=== PATIENT | male | born 1965 | race Caucasian/White ===

== ENCOUNTER 2018-11-15 21:08 | Inpatient (IN) | payer MEDICARE, MEDICAID ==
[~2018-11-15] VITALS: Ht 172.7 cm; Wt 68.9 kg
--- NOTE | 2018-11-15 23:15 | NUR ---
RECEIVED PATIENT A DIRECT ADMIT FROM [facility] FOR DX RIGHT HAND CELLULITIS. AO X 3, ABLE TO MAKE NEEDS KNOWN. NO ACUTE DISTRESS NOTED. DENIES PAIN AT THIS TIME. IV SITE PATENT, INTACT; FLUSHED. RIGHT INDEX FINGER WITH LARGE BLOOD-FILLED BLISTER; PHOTO TAKEN. OTHERWISE SKIN IS INTACT. SAFETY REMINDERS GIVEN. ORIENTATION TO ROOM AND UNIT GIVEN; PATIENT VERBALIZED UNDERSTANDING. ON LOW BED WITH BILATERAL UPPER SIDE RAILS UP. CALL CRANDALL WITHIN EASY REACH. WILL CONTINUE TO MONITOR.
[2018-11-15 23:20] VITALS: BP 115/68
[2018-11-15 23:45] VITALS: BP 115/68
[2018-11-16] MEDS ORDERED: BUPR100T6 PO (00:16)
[2018-11-16] MEDS ORDERED: FLUO20CA36 PO (00:16)
[2018-11-16] MEDS ORDERED: [UNRECOGNIZED DRUG - OTHER] PO (00:16)
[2018-11-16] MEDS ORDERED: Z GUARD REMEDY 2 OZ OINT TP PRN (02:00)
[2018-11-16] MEDS ORDERED: ONDANSETRON HCL/PF 4 MG/2 ML VIAL IVP PRN (02:00)
[2018-11-16] MEDS ORDERED: MAG HYDROX/AL HYDROX/SIMETH 30 ML UDC PO PRN (02:00)
[2018-11-16] MEDS ORDERED: HYDROCODONE/APAP 5/325MG 1 EACH TABLET PO PRN (02:00)
[2018-11-16] MEDS ORDERED: MAGNESIUM HYDROXIDE 30 ML UDC PO PRN (02:00)
[2018-11-16] MEDS ORDERED: buPROPion SR 100 MG TABLET.ER PO SCH (02:00)
[2018-11-16] MEDS ORDERED: VANCOMYCIN 1 GM in IV D5W 250 ML IV SCH (02:00)
[2018-11-16] MEDS ORDERED: ZOLPIDEM TARTRATE 5 MG TABLET PO PRN (02:00)
[2018-11-16] MEDS ORDERED: ACETAMINOPHEN 325 MG TABLET PO PRN (02:00)
[2018-11-16] MEDS ORDERED: PIPERACILLIN /TAZOBACTAM 3.375 G in IV D5W 50 ML IV ONE (03:00)
[2018-11-16] MEDS ORDERED: PIPERACILLIN /TAZOBACTAM 3.375 G VIAL IV ONE (03:14)
[2018-11-16] MEDS ORDERED: VANCOMYCIN 1 GM VIAL ONE (03:16)
[2018-11-16] MEDS ORDERED: VANCOMYCIN 1 GM in IV D5W 250 ML IV ONE (03:30)
--- NOTE | 2018-11-16 06:04 | NUR ---
PATIENT ASLEEP, EASILY AROUSABLE. RESPIRATIONS EVEN. NO SIGNS OF PAIN NOTED. DUE MEDS GIVEN WITH NO ASE NOTED. NEEDS ATTENDED. SAFETY PRECAUTIONS AND COMFORT MEASURES IN PLACE. WILL GIVE REPORT TO DAY SHIFT FOR CONTINUITY OF CARE.
[2018-11-16] MEDS ORDERED: FEE PK DOSING 1 MIN EA MC ONE ×2 (07:21→07:26)
--- NOTE | 2018-11-16 08:00 | NUR ---
MS RN NOTES PATIENT IN BED RESTING NO SOB OR ACUTE DISTRESS NOTED. PATIENT ALERT, ORIENTED X3 DENIES ANY PAIN OR DISCOMFORT. BED IN LOW LOCKED POSITION. CALL LIGHT WITHIN REACH. WILL CONTINUE TO MONITOR.
[2018-11-16] MEDS: FLUOXETINE HCL 20 MG CAPSULE PO SCH ×2 (08:16→20:55)
[2018-11-16] MEDS: BUPROPION XL 150 MG TAB.ER.24 PO SCH (10:13)
--- NOTE | 2018-11-16 12:39 | NUR ---
WOUND CARE CONSULT WOUND CARE RECEIVED CONSULT FOR WOUND TO RIGHT INDEX FINGER. WOUND CARE WILL DEFER CONSULT AND TREATMENT PLANS TO PLASTIC SURGICAL TEAM. PLASTIC TEAM HAS BEEN NOTIFIED OF THIS CONSULT. PATIENT WITH DARYA AT 20, WILL SEE PRN.
--- NOTE | 2018-11-16 13:00 | NUR ---
MS RN NOTES PATIENT SEEN BY SANTOS Mabry MANAGER EMS SPOKE TO SURGEON DR. LAGUERRE. SCHEDULED SURGERY FOR WASH OUT AND DEBRIDEMENT AT 1400 ALL CONSENTS OBTAINED SPOKE TO SISTER ON THE PHONE INFORMED OF THE SURGERY . WILL CONTINUE TO MONITOR.
[2018-11-16] MEDS: VANCOMYCIN 0.75 GM in IV D5W 250 ML IV SCH ×2 (13:15→21:26)
[2018-11-16 13:45] LABS: BASOPHILS # (AUTO) 0.1 /CMM (0.0-0.2); BASOPHILS % (AUTO) 0.6 % (0.0-2.0); HEMATOCRIT 41 % (39-51); HEMOGLOBIN 14.1 g/dL (13.5-17.5); LYMPHOCYTES # (AUTO) 1.2 /CMM (0.8-4.8); LYMPHOCYTES % (AUTO) 12.2 % (20.0-44.0); MEAN CORPUSCULAR HGB CONC 34 g/dl (31.0-36.0); MEAN CORPUSCULAR VOLUME 93 fL (80-96); MONOCYTES # (AUTO) 0.8 /CMM (0.1-1.30); MONOCYTES % (AUTO) 8.9 % (2.0-12.0); NEUTROPHILS # (AUTO) 7.3 /CMM (1.8-8.9); NEUTROPHILS % (AUTO) 77.3 % (43.0-81.0); PLATELET COUNT (AUTO) 186 /CMM (150-450); RED BLOOD CELL COUNT(AUTO) 4.43 MIL/uL (4.5-6.0); WHITE BLOOD COUNT (AUTO) 9.4 K/uL (4.3-11.0)
[2018-11-16 13:57] LABS: CALCIUM, SERUM 8.8 mg/dL (8.5-10.1); POTASSIUM 3.9 mmol/L (3.5-5.1)
--- NOTE | 2018-11-16 14:00 | NUR ---
MS RN NOTES PATIENTS SURGERY GOT CANCELLED DUE. PATIENT MADE AWARE AND SISTER. WILL CONTINUE TO MONITOR.
[2018-11-16 14:03] LABS: ALBUMIN 3.1 g/dL (3.4-5.0); BILIRUBIN,TOTAL 0.4 mg/dL (0.2-1.0); TOTAL PROTEIN, SERUM 6.8 g/dL (6.4-8.2)
[2018-11-16 16:00] VITALS: BP 123/72
--- NOTE | 2018-11-16 18:18 | NUR ---
MS RN NOTES PATIENT IN BED RESTING NO SOB OR ACUTE DISTRESS NOTED. PATIENT ALERT, ORIENTED X3 . ALL DUE MEDICATIONS ADMINISTERED. ALL NEEDS MET. NO ACUTE CHANGES NOTED. WILL ENDORSE CARE TO PM SHIFT.
[2018-11-16] MEDS ORDERED: CEFEPIME 1 GM in IV D5W 50 ML IV SCH (19:00)
--- NOTE | 2018-11-16 19:25 | NUR ---
MS RN OPENING NOTES: RECEIVED PT ON ROOM AIR AND IS TOLERATING WELL. PT NOT COMPLAINING OF ANY PAIN AT THIS TIME. PT RESTING IN BED COMFORTABLY. IV REMAINS INTACT AND IS CURRENTLY H/L. INFORMED PT THAT HE IS TO BE NPO POST MIDNIGHT FOR POSSIBLE SURGERY IN AM. BED KEPT IN LOW, LOCKED POSITION, AND SIDE RAILS X 2UP. WILL CONTINUE TO MONITOR PT.
[2018-11-16 20:01] VITALS: BP 110/66
[2018-11-16] MEDS: CEFEPIME 2 GM in IV D5W 100 ML IV SCH (20:40)
[2018-11-17] MEDS: VANCOMYCIN 0.75 GM in IV D5W 250 ML IV SCH ×3 (04:04→21:12)
[2018-11-17 06:27] LABS: BASOPHILS % (AUTO) 0.6 % (0.0-2.0); EOSINOPHILS % (AUTO) 1.9 % (0.0-6.0); HEMATOCRIT 42 % (39-51); HEMOGLOBIN 14.2 g/dL (13.5-17.5); LYMPHOCYTES # (AUTO) 1.2 /CMM (0.8-4.8); LYMPHOCYTES % (AUTO) 14.8 % (20.0-44.0); MEAN CORPUSCULAR HGB CONC 34 g/dl (31.0-36.0); MEAN CORPUSCULAR VOLUME 93 fL (80-96); MONOCYTES # (AUTO) 0.7 /CMM (0.1-1.30); MONOCYTES % (AUTO) 8.8 % (2.0-12.0); NEUTROPHILS # (AUTO) 5.9 /CMM (1.8-8.9); NEUTROPHILS % (AUTO) 73.9 % (43.0-81.0); PLATELET COUNT (AUTO) 191 /CMM (150-450); RED BLOOD CELL COUNT(AUTO) 4.47 MIL/uL (4.5-6.0)
--- NOTE | 2018-11-17 06:41 | NUR ---
MS RN CLOSING NOTES: ALL NEEDS WERE ATTENDED AND ANTICIPATED FOR. PT KEPT CLEAN, DRY, AND COMFORTABLE. IV REMAINS INTACT. CURRENTLY H/L. PT HAS BEEN NPO SINCE MIDNIGHT. CONSENTS PLACED IN CHART. PT FOR POSSIBLE SX TODAY ALTHOUGH NOT ON SCHEDULE. DRESSING REMAINS ON R INDEX. BED KEPT IN LOW, LOCKED POSITION, AND SIDE RAILS X2UP. WILL ENDORSE TO AM NURSE FOR SARAH.
[2018-11-17 07:02] LABS: CALCIUM, SERUM 8.7 mg/dL (8.5-10.1); CREATININE 0.9 mg/dL (0.6-1.3); MAGNESIUM 2.1 mg/dL (1.8-2.4); PHOSPHORUS 3.5 mg/dL (2.5-4.9); POTASSIUM 4.1 mmol/L (3.5-5.1)
--- NOTE | 2018-11-17 07:20 | NUR ---
RN NOTES A/OX3, BREATHING EVEN AND UNLABORED, RIGHT INDEX FINGER AND MIDDLE FINGER COVERED WITH KERLIX. DENIES PAIN AT THIS TIME, KEPT COMFORTABLE, NEEDS ATTENDED, CALL LIGHT WITHIN REACH, WILL CONTINUE TO MONITOR.
[2018-11-17 08:00] VITALS: BP 119/76
[2018-11-17] MEDS: CEFEPIME 2 GM in IV D5W 100 ML IV SCH ×2 (08:49→20:19)
[2018-11-17] MEDS ORDERED: buPROPion SR 150 MG TABLET.ER PO SCH (09:00)
[2018-11-17] MEDS: FLUOXETINE HCL 20 MG CAPSULE PO SCH ×2 (09:28→21:12)
[2018-11-17] MEDS: BUPROPION XL 150 MG TAB.ER.24 PO SCH (09:28)
[2018-11-17] MEDS ORDERED: HYDR-3972 PO (12:50)
[2018-11-17] MEDS ORDERED: LACT1CAP72 PO (12:50)
[2018-11-17 16:00] VITALS: BP 123/72
[2018-11-17] MEDS: LACTOBACILLUS RHAMNOSUS GG 1 EACH CAP.SPRINK PO SCH (16:52)
--- NOTE | 2018-11-17 18:48 | NUR ---
RN NOTES PER LIBRARY SERVICES COORDINATOR, PATIENT IS ACCEPTED AT [facility], HOWEVER STILL WAITING FOR A BED AVAILABILITY. PATIENT A/OX3, BREATHING EVEN AND UNLABORED, NO SOB NOTED, NO DISTRESS. KEPT COMFORTABLE, RIGHT INDEX FINGER DRESSING CLEAN AND INTACT. NEEDS ATTENDED AND MET, CALL LIGHT WITHIN REACH, WILL ENDORSE TO SUPERVISOR INSTRUMENT REPAIR FOR SARAH.
--- NOTE | 2018-11-17 19:30 | NUR ---
RN NOTES RECEIVED PT. AWAKE ON BED, A/OX3, DRESSING ON HIS RIGHT INDEX DRY AND INTACT, CALL LIGHT WITHIN REACH, [id number], CONTINUE TO MONITOR
[2018-11-17 20:00] VITALS: BP 117/65
[2018-11-18] MEDS: VANCOMYCIN 0.75 GM in IV D5W 250 ML IV SCH ×3 (05:10→21:06)
--- NOTE | 2018-11-18 06:19 | NUR ---
RN NOTES AWAKE, DENIES PAIN, NO SOB, CALL LIGHT WITHIN REACH, [id number], , PT. NEEDS ATTENDED
--- NOTE | 2018-11-18 07:15 | NUR ---
RN NOTES PATIENT ASLEEP, EASILY AWAKEN, NAD, DENIES PAIN AT THIS TIME. RIGHT INDEX FINGER, CLEAN AND DRY, KEPT COMFORTABLE, NEEDS ATTENDED, CALL LIGHT WITHIN REACH, WILL CONTINUE TO MONITOR.
[2018-11-18 08:00] VITALS: BP 123/72
[2018-11-18 08:08] LABS: CALCIUM, SERUM 8.7 mg/dL (8.5-10.1); CREATININE 0.9 mg/dL (0.6-1.3)
[2018-11-18] MEDS: FLUOXETINE HCL 20 MG CAPSULE PO SCH ×2 (09:19→21:05)
[2018-11-18] MEDS: BUPROPION XL 150 MG TAB.ER.24 PO SCH (09:19)
[2018-11-18] MEDS: LACTOBACILLUS RHAMNOSUS GG 1 EACH CAP.SPRINK PO SCH ×2 (09:19→17:16)
[2018-11-18] MEDS: CEFEPIME 2 GM in IV D5W 100 ML IV SCH ×2 (09:19→20:23)
[2018-11-18 16:00] VITALS: BP 120/73
--- NOTE | 2018-11-18 18:28 | NUR ---
RN NOTES PATIENT IN NAD, WOUND TREATMENT RENDERED, DENIES PAIN OR DISCOMFORT AT THIS TIME, KEPT COMFORTABLE, NEEDS ATTENDED AND MET, CALL LIGHT WITHIN REACH, WILL ENDORSE TO DIRECTOR CLINICAL APPLICATIONS FOR SARAH.
--- NOTE | 2018-11-18 19:30 | NUR ---
RN NOTES RECEIVED PT. AWAKE ON BED, A/OX3, DENIES PAIN, NO SOB, CALL LIGHT WITHIN REACH,.[id number], CONTINUE TO MONITOR
[2018-11-18 19:51] VITALS: BP 120/67
[2018-11-19] MEDS: VANCOMYCIN 0.75 GM in IV D5W 250 ML IV SCH ×3 (04:53→21:20)
--- NOTE | 2018-11-19 06:33 | NUR ---
RN NOTES SLEEPING BUT AROUSABLE, MORNING CARE RENDERED, DENIES PAIN, NO SOB, CALL LIGHT WITHIN REACH,S [id number], CONTINUE TO MONITOR
[2018-11-19 06:40] LABS: CALCIUM, SERUM 8.7 mg/dL (8.5-10.1); POTASSIUM 4.4 mmol/L (3.5-5.1)
--- NOTE | 2018-11-19 07:45 | NUR ---
MS RN OPENING NOTE RECEIVED PATIENT AWAKE IN BED AT THIS TIME. ABLE TO COMMUNICATE NEEDS. IV INTACT AND PATENT ON LEFT FOREARM 20G S/L. CALL LIGHT WITHIN REACH. NPO AT THIS TIME FOR POSSIBLE WOUND DEBRIDEMENT. ALERT AND ORIENTED x4. NO PAIN NOTED AT THIS TIME. NO SOB OR DISTRESS NOTED ON ROOM AIR TOLERATING WELL. WILL CONTINUE TO MONITOR
[2018-11-19 08:00] VITALS: BP 124/69
[2018-11-19] MEDS: LACTOBACILLUS RHAMNOSUS GG 1 EACH CAP.SPRINK PO SCH ×2 (08:34→16:48)
[2018-11-19] MEDS: FLUOXETINE HCL 20 MG CAPSULE PO SCH ×2 (08:34→20:13)
[2018-11-19] MEDS: BUPROPION XL 150 MG TAB.ER.24 PO SCH (08:34)
[2018-11-19] MEDS: CEFEPIME 2 GM in IV D5W 100 ML IV SCH ×2 (08:40→20:13)
[2018-11-19] MEDS ORDERED: MIDAZOLAM HCL 2 MG/2ML VIAL ONE (11:33)
[2018-11-19] MEDS ORDERED: FENTANYL PF 250MCG/5ML AMPUL ONE (11:34)
[2018-11-19] MEDS ORDERED: ANESTHESIA TRAY IN PYXIS 1 EA TRAY MC ONE (11:35)
[2018-11-19] MEDS ORDERED: BACITRACIN 50000 UNITS/VIAL ONE (11:42)
[2018-11-19] MEDS ORDERED: LIDOCAINE HCL/PF 1% 30 ML SDV ONE (11:42)
[2018-11-19] MEDS ORDERED: BUPIVACAINE MPF 0.5% W/EPI INJ 30 ML VIAL ONE ×2 (11:42→12:53)
--- NOTE | 2018-11-19 11:43 | NUR ---
MS RN NOTE PATIENT TAKEN TO SURGERY FOR RIGHT INDEX DEBRIDEMENT. CONSENTS PLACED IN CHART. PATIENT STABLE.
[2018-11-19] MEDS ORDERED: BUPIVACAINE 0.5 % PF 150 MG/30 ML VIAL ONE (13:40)
--- NOTE | 2018-11-19 14:19 | NUR ---
MS RN NOTE PATIENT IS BACK FROM SURGERY. PATIENT IS STABLE AT THIS TIME. ORDERS RECEIVED AND CARRIED OUT.
--- NOTE | 2018-11-19 14:32 | NUR ---
MS RN NOTE VANCO IV DOSE GIVEN NOW. PATIENT WAS IN SURGERY AT SCHEDULED DOSE TIME
[2018-11-19 16:00] VITALS: BP 103/71
--- NOTE | 2018-11-19 16:55 | NUR ---
MS RN NOTE PER DR. LAGUERRE PATIENT WILL NEED 6 WEEK ANTIBIOTIC COURSE WITH PICC/MIDLINE, WILL CONTACT MADI SAWYER. INFORMED CASE MANAGEMENT-YAMILETH IN REGARDS TO CARE.
--- NOTE | 2018-11-19 19:16 | NUR ---
ms rn closing note patient resting comfortably at this time. all due medications given. all nursing care needs met. alert and oriented X4. no pain at this time. no sob or distress noted on room air. iv intact and patent no redness or swelling noted. able to communicate needs. s/p right index wound debridement by dr. goldy oneal supplier manager dressing will be changed in am by . possible discharge in am-pending. labs in am. will endorse to inspector floor sub assembly nurse for trace
--- NOTE | 2018-11-19 19:30 | NUR ---
RECEIVED PATIENT IN BED AWAKE, AO X 3, ABLE TO MAKE NEEDS KNOWN. NO ACUTE DISTRESS NOTED. DENIES ANY PAIN AT THIS TIME. IV SITE PATENT, INTACT; FLUSHED. RIGHT INDEX FINGER DRESSING INTACT. SAFETY REMINDERS GIVEN. ON LOW BED WITH BILATERAL UPPER SIDE RAILS UP. CALL CRANDALL WITHIN EASY REACH. WILL CONTINUE TO MONITOR.
[2018-11-19 20:00] VITALS: BP 109/70
[2018-11-19 20:41] VITALS: BP 109/70
[2018-11-20 04:18] LABS: BASOPHILS % (AUTO) 0.4 % (0.0-2.0); EOSINOPHILS % (AUTO) 2.6 % (0.0-6.0); HEMATOCRIT 42 % (39-51); HEMOGLOBIN 14.2 g/dL (13.5-17.5); LYMPHOCYTES # (AUTO) 1.3 /CMM (0.8-4.8); LYMPHOCYTES % (AUTO) 15.5 % (20.0-44.0); MEAN CORPUSCULAR HGB CONC 34 g/dl (31.0-36.0); MEAN CORPUSCULAR VOLUME 93 fL (80-96); MONOCYTES # (AUTO) 0.7 /CMM (0.1-1.30); MONOCYTES % (AUTO) 8.4 % (2.0-12.0); NEUTROPHILS % (AUTO) 73.1 % (43.0-81.0); PLATELET COUNT (AUTO) 221 /CMM (150-450); RED BLOOD CELL COUNT(AUTO) 4.51 MIL/uL (4.5-6.0); WHITE BLOOD COUNT (AUTO) 8.3 K/uL (4.3-11.0)
[2018-11-20 04:27] LABS: CALCIUM, SERUM 8.6 mg/dL (8.5-10.1)
[2018-11-20] MEDS: VANCOMYCIN 0.75 GM in IV D5W 250 ML IV SCH ×3 (05:17→20:46)
--- NOTE | 2018-11-20 07:51 | NUR ---
MS RN OPENING NOTES RECEIVED PT LAYING IN BED, AWAKE AND ALERT. PT IS A/O X4, AFEBRILE. RESPIRATIONS ARE EVEN AND UNLABORED, NOT IN ANY ACUTE DISTRESS NOTED. PT DENIES ANY PAIN AT THIS TIME, NO C/O SOB, N/V. IV SITE TO LUX INTACT, NO INFILTRATION NOTED. DRESSING KEPT CLEAN AND DRY. SAFETY MEASURES ARE IN PLACE. INSTRUCTED PT TO USE CALL LIGHT WHEN ASSISTANCE IS NEEDED, CALL LIGHT IS LEFT WITHIN REACH. WILL CONTINUE TO MONITOR FOR CONTINUITY OF CARE.
[2018-11-20 08:00] VITALS: BP 119/74
[2018-11-20] MEDS: BUPROPION XL 150 MG TAB.ER.24 PO SCH (08:18)
[2018-11-20] MEDS: CEFEPIME 2 GM in IV D5W 100 ML IV SCH ×2 (08:18→22:54)
[2018-11-20] MEDS: LACTOBACILLUS RHAMNOSUS GG 1 EACH CAP.SPRINK PO SCH ×2 (08:18→16:15)
[2018-11-20] MEDS: FLUOXETINE HCL 20 MG CAPSULE PO SCH ×2 (08:18→20:55)
--- NOTE | 2018-11-20 12:08 | NUR ---
MS RN NOTES-- CLARIFIED WITH MOO FROM PHARMACY RE: DOSE OF VANCO. PER MOO, OKAY TO CONTINUE.
--- NOTE | 2018-11-20 12:30 | NUR ---
MS RN NOTES-- DRESSING CHANGE DONE TO LEFT HAND BY JASPREET GARCIA.
--- NOTE | 2018-11-20 14:10 | NUR ---
MS HOWELL NOTES-- PT SIGNED CONSENT FORMS FOR WOUND DEBRIDEMENT AND PARTIAL AMUPUTATION TO LEFT 2-4 TOES. Addendum: 11/20/18 at 1849 by LYNN DAIGLE RN INCORRECT PATIENT.
[2018-11-20 16:00] VITALS: BP 128/68
--- NOTE | 2018-11-20 18:49 | NUR ---
MS RN CLOSING NOTES ALL DUE MEDS GIVEN, NEEDS MET AND ANTICIPATED. PT IS A/O X3, AFEBRILE. RESPIRATIONS ARE EVEN AND UNLABORED, NOT IN ANY ACUTE DISTRESS NOTED. PT DENIES ANY PAIN AT THIS TIME, NO C/O SOB, N/V NOTED. IV SITE TO LAC INTACT, NO INFILTRATION NOTED. DRESSING KEPT CLEAN AND DRY. SAFETY MEASURES ARE IN PLACE. WILL ENDORSE TO NEXT SHIFT FOR CONTINUITY OF CARE.
[2018-11-20 20:00] VITALS: BP 108/62
--- NOTE | 2018-11-20 20:00 | NUR ---
MS/RN NOTES: RECEIVED PT. IN BED W/ HOB ELEVATED WATCHING TV. A/O X 4. DENIES ANY C/O CHEST PAIN OR SOB AT PRESENT. DRESSING TO RIGHT INDEX FINGER C/D/I. IV TO LAC INTACT . NOTED LEFT HAND FROM ELBOW TO WRIST RED, WARM TO TOUCH. CHARGE NURSE MIKEY INFORMED. IV D/C ON LAC. STARTED 20 G ON HAMIDA PATENT AND INTACT W/ NO S/S OF INFECTION/INFILTRATION NOTED. DR. CORTÉS MADE AWARE BY CHARGE NURSE. CONTINENT OF B/B. BED LOCKED AND IN LOW POSITION. CALL LIGHT W/ REACH. WILL CONTINUE TO MONITOR.
[2018-11-21] MEDS: VANCOMYCIN 0.75 GM in IV D5W 250 ML IV SCH (05:46)
[2018-11-21 06:30] LABS: BASOPHILS # (AUTO) 0.1 /CMM (0.0-0.2); BASOPHILS % (AUTO) 0.8 % (0.0-2.0); EOSINOPHILS % (AUTO) 2.4 % (0.0-6.0); HEMATOCRIT 43 % (39-51); HEMOGLOBIN 14.7 g/dL (13.5-17.5); LYMPHOCYTES # (AUTO) 1.4 /CMM (0.8-4.8); LYMPHOCYTES % (AUTO) 15.3 % (20.0-44.0); MEAN CORPUSCULAR HGB CONC 34 g/dl (31.0-36.0); MEAN CORPUSCULAR VOLUME 92 fL (80-96); MONOCYTES # (AUTO) 0.7 /CMM (0.1-1.30); MONOCYTES % (AUTO) 7.5 % (2.0-12.0); NEUTROPHILS # (AUTO) 6.9 /CMM (1.8-8.9); PLATELET COUNT (AUTO) 252 /CMM (150-450); RED BLOOD CELL COUNT(AUTO) 4.65 MIL/uL (4.5-6.0); WHITE BLOOD COUNT (AUTO) 9.4 K/uL (4.3-11.0)
[2018-11-21 06:42] LABS: CALCIUM, SERUM 8.9 mg/dL (8.5-10.1)
--- NOTE | 2018-11-21 07:15 | NUR ---
RN OPENING NOTES RECEIVED PATIENT IN BED RESTING. A/OX 3-4, ABLE TO MAKE NEEDS KNOWN. NOT IN ANY FORM OF DISTRESS, NO SOB. DENIED PAIN OR DISCOMFORT AT THE MOMENT. IV ACCESS ON HAMIDA, INTACT AND PATENT. KEPT PATIENT SAFE AND COMFORTABLE. BED IN LOW/LOCKED POSITION, SIDERAILS UP X2, SEMIFOWLERS, CALL LIGHT IN REACH. WILL CONTINUE TO MONITOR ACCORDINGLY.
[2018-11-21 08:00] VITALS: BP 116/66
[2018-11-21] MEDS: LACTOBACILLUS RHAMNOSUS GG 1 EACH CAP.SPRINK PO SCH (08:35)
[2018-11-21] MEDS: BUPROPION XL 150 MG TAB.ER.24 PO SCH (08:35)
[2018-11-21] MEDS: FLUOXETINE HCL 20 MG CAPSULE PO SCH (08:36)
[2018-11-21] MEDS: CEFEPIME 2 GM in IV D5W 100 ML IV SCH (08:38)
--- NOTE | 2018-11-21 11:10 | NUR ---
RN AMA NOTES RECEIVED A CALL FROM [facility] THAT PATIENT LEFT THE BUILDING SAYING HE WAS DISCHARGE. PRIMARY RN FOLLOWED THE PATIENT OUTSIDE THE HOSPITAL. AGREED TO RETURN THE UNIT. PATIENT IN THE ROOM, EXPLAINED RISK OF LEAVING AMA BUT PATIENT STILL WANTED TO LEAVE, SIGNED AMA FORM. REMOVED IV ACCESS, APPLIED PRESSURE, NO BLEEDING, NO COMPLICATIONS. REMOVED NAME BAND. REFUSED PHOTOS. TOLD THE PATIENT TO WAIT SO I CAN GIVE HIS PAPERWORK. REFUSED TO ACCEPT PAPERWORK AND LEFT, TOOK ALL BELONGINGS WITH HIM. SEWING MACHINE MECHANIC NOTIFIED, NOTIFIED.
== END 2018-11-21 11:10 | disposition left against medical advice (07) | DRG 982 ==
LOC: MEDSG2 22:57
PROVIDERS: ADMIT Nurse Practitioner Acute Care; ATTEND Family Medicine
PROC: 0KBC0ZZ Excision of Right Hand Muscle, Open Approach (ICD-10-PCS; principal; 2018-11-19)
PROC: 02HV33Z Insertion of Infusion Device into Superior Vena Cava, Percutaneous Approach (ICD-10-PCS; 2018-11-21)
PROC: B548ZZA Ultrasonography of Superior Vena Cava, Guidance (ICD-10-PCS; 2018-11-21)
DX: L03.011 Cellulitis of right finger (principal); F20.0 Paranoid schizophrenia; E87.1 Hypo-osmolality and hyponatremia; E87.6 Hypokalemia; M65.18 Other infective (teno)synovitis, other site; B95.62 Methicillin resistant Staphylococcus aureus infection as the cause of diseases classified elsewhere; W19.XXXA Unspecified fall, initial encounter; Y93.9 Activity, unspecified; Y92.009 Unspecified place in unspecified non-institutional (private) residence as the place of occurrence of the external cause
CPT/HCPCS: 36415; 71045-TC; 73140-TC; 73200-TC; 80048-TC; 80053-TC; 80061-TC; 80202-TC; 83735-TC; 84100-TC; 85025-TC; 85610-TC; 85730-TC; 87070-TC; 87081-TC; A6402; A6403; G0378; J0692; J2250; J2405; J2543; J2704; J3010; J3370; J3490; J7050; J7060

== ENCOUNTER 2018-11-21 16:00 | Emergency (ER) | payer MEDICARE, MEDICAID ==
[~2018-11-21] VITALS: Ht 172.7 cm; Wt 68.5 kg
[~2018-11-21 16:00] MED LIST: BUPR100T6 PO; FLUO20CA36 PO; HYDR-3972 PO; LACT1CAP72 PO
--- NOTE | 2018-11-21 17:00 | NUR ---
WOUNDCHECK ON THE R INDEX FINGER, NOTED PUS AND BLEEDING THIS MORNING. ALERT AND ORIENTED X 3. ON ROOM AIR, BREATHING EVENLY AND UNLABORED. KEPT COMFORTABLE, WILL CONTINUE TO MONITOR ACCORDINGLY.
--- NOTE | 2018-11-21 17:50 | NUR ---
INSTRUCTOR CREELER AT BEDSIDE, AND PATIENT NEEDS PICC LINE. CALLED HOUSE SUP FOR PICC LINE INSERTION AND MADE AWARE.
[2018-11-21 19:14] VITALS: BP 125/71
--- NOTE | 2018-11-21 19:15 | NUR ---
Patient discharged to home in stable condition. Written and verbal after care instructions given. Patient verbalizes understanding of instruction. picc line inserted and ok to use per picc line nurse.
== END 2018-11-21 19:15 | disposition home or self-care (01) ==
LOC: ER 16:01
DX: L03.011 Cellulitis of right finger (principal); F20.9 Schizophrenia, unspecified; F41.9 Anxiety disorder, unspecified
CPT/HCPCS: 36569; 99285; A4606; C1751; J7040

== ENCOUNTER 2018-11-22 14:40 | Outpatient (CLI) | payer MEDICARE, MEDICAID | END 2018-11-22 23:59 | disposition home health service (06) | LOC: WOU 14:40 | PROVIDERS: ATTEND Surgery | DX: S61.210A Laceration without foreign body of right index finger without damage to nail, initial encounter (principal); L03.011 Cellulitis of right finger; W45.8XXA Other foreign body or object entering through skin, initial encounter; Y92.89 Other specified places as the place of occurrence of the external cause; F20.89 Other schizophrenia; Z79.899 Other long term (current) drug therapy | CPT/HCPCS: 11042; 11043; 11045; A6402; A6407; Z7610 ==

== ENCOUNTER 2018-11-26 13:05 | Outpatient (CLI) | payer MEDICARE, MEDICAID | END 2018-11-26 23:59 | disposition home health service (06) | LOC: WOU 13:05 | PROVIDERS: ATTEND Surgery | DX: S61.210A Laceration without foreign body of right index finger without damage to nail, initial encounter (principal); X58.XXXA Exposure to other specified factors, initial encounter; Y92.89 Other specified places as the place of occurrence of the external cause; L03.011 Cellulitis of right finger; F20.89 Other schizophrenia; F22 Delusional disorders; Z95.828 Presence of other vascular implants and grafts; Z79.899 Other long term (current) drug therapy | CPT/HCPCS: 11042; 11043; 11045; A6402; A6407 ==

== ENCOUNTER 2018-12-03 12:47 | Outpatient (CLI) | payer MEDICARE, MEDICAID | END 2018-12-03 23:59 | disposition home health service (06) | LOC: WOU 12:47 | PROVIDERS: ATTEND Surgery | DX: S61.210A Laceration without foreign body of right index finger without damage to nail, initial encounter (principal); L03.011 Cellulitis of right finger; X58.XXXA Exposure to other specified factors, initial encounter; Y92.89 Other specified places as the place of occurrence of the external cause; F20.89 Other schizophrenia; Z95.828 Presence of other vascular implants and grafts; Z79.899 Other long term (current) drug therapy | CPT/HCPCS: 11043; A6402; A6407 ==

== ENCOUNTER 2018-12-10 13:15 | Outpatient (CLI) | payer MEDICARE, MEDICAID | END 2018-12-10 23:59 | disposition home health service (06) | LOC: WOU 13:15 | PROVIDERS: ATTEND Surgery | DX: S61.210A Laceration without foreign body of right index finger without damage to nail, initial encounter (principal); L03.011 Cellulitis of right finger; X58.XXXA Exposure to other specified factors, initial encounter; Y92.89 Other specified places as the place of occurrence of the external cause; F20.89 Other schizophrenia; Z95.828 Presence of other vascular implants and grafts; Z79.899 Other long term (current) drug therapy | CPT/HCPCS: 11043; A6402; A6407 ==

== ENCOUNTER 2018-12-17 13:45 | Outpatient (CLI) | payer MEDICARE, MEDICAID | END 2018-12-17 23:59 | disposition home health service (06) | LOC: WOU 13:45 | PROVIDERS: ATTEND Surgery | DX: S61.210D Laceration without foreign body of right index finger without damage to nail, subsequent encounter (principal); X58.XXXD Exposure to other specified factors, subsequent encounter; L03.011 Cellulitis of right finger; F20.89 Other schizophrenia | CPT/HCPCS: A6402; G0463 ==

== ENCOUNTER 2018-12-24 13:10 | Outpatient (CLI) | payer MEDICARE, MEDICAID | END 2018-12-24 23:59 | disposition home health service (06) | LOC: WOU 13:10 | PROVIDERS: ATTEND Surgery | DX: S61.210D Laceration without foreign body of right index finger without damage to nail, subsequent encounter (principal); X58.XXXD Exposure to other specified factors, subsequent encounter; F20.89 Other schizophrenia | CPT/HCPCS: A6402; G0463 ==

== ENCOUNTER 2019-01-07 13:33 | Outpatient (CLI) | payer MEDICARE, MEDICAID | END 2019-01-07 23:59 | disposition home health service (06) | LOC: WOU 13:33 | PROVIDERS: ATTEND Surgery | DX: S61.210D Laceration without foreign body of right index finger without damage to nail, subsequent encounter (principal); X58.XXXD Exposure to other specified factors, subsequent encounter; F20.89 Other schizophrenia | CPT/HCPCS: G0463 ==